=== PATIENT | male | born 1955 ===

== ENCOUNTER 2017-01-07 09:51 | Day surgery (SDC) | payer OTHER ==
[2017-01-07 10:49] VITALS: BMI 23.4
[2017-01-07] MEDS ORDERED: Propofol 10 mg/ml Inj (20 ML) ONE (12:08)
[2017-01-07] MEDS ORDERED: Lidocaine 2% Inj (20ml) ONE (12:08)
[2017-01-07] MEDS ORDERED: Lactated Ringer's 500 ML IV ONE (12:15)
[2017-01-07] MEDS ORDERED: ePHEDrine 50 mg/ml Inj ONE (12:21)
[2017-01-07] MEDS ORDERED: Esmolol 100 mg/10ml Inj IV ONE (12:41)
[2017-01-07 13:47] VITALS: TEMP 97.8
[2017-01-07 13:49] VITALS: RESP 20; O2SAT 98
[2017-01-07 13:53] VITALS: BP 125/83; PULSE 90
== END 2017-01-07 13:45 | disposition home or self-care (01) ==
LOC: C.ENDO 09:51
PROVIDERS: ATTEND Internal Medicine Gastroenterology
DX: D12.5 Benign neoplasm of sigmoid colon (principal); R63.4 Abnormal weight loss; R63.0 Anorexia; K29.60 Other gastritis without bleeding; K29.80 Duodenitis without bleeding
CPT/HCPCS: 43239; 45388; 88305; 88313; 88342; J2704; J7120